=== PATIENT | female | born 1995 | race Caucasian/White ===

== ENCOUNTER 2024-07-30 17:18 | Inpatient (IN) ==
[2024-07-30] MEDS ORDERED: OXYTOCIN 30 UNITS/NSS 30 UNITS/500 ML BAG IV PRN (18:08)
[2024-07-30] MEDS ORDERED: LIDOCAINE 1% LOCAL 20 ML VIAL INFIL PRN (18:08)
[2024-07-30] MEDS ORDERED: CALCIUM CARBONATE 500 MG CHEWABLE TAB PO PRN (18:08)
[2024-07-30] MEDS: NIFEdipine 10 MG CAP PO STA ×2 (18:27→23:50)
[2024-07-30 18:55] LABS: Hemoglobin 12.5 g/dl (12.0-16.0); Mean Corpuscular Hemoglobin 31.3 pg (25.0-34.0); Mean Corpuscular Hgb Conc 34.7 g/dL (32.0-36.0); Mean Corpuscular Volume 90.2 fL (80.0-100.0); Mean Platelet Volume 11.9 fL (9.4-12.4); Platelet Count 169 K/uL (130-400); RDW Coefficient of Variation 14.4 % (11.5-14.5); RDW Standard Deviation 47.6 fL (36.4-46.3); Red Blood Count 3.99 M/uL (4.20-5.40); White Blood Count 16.31 K/ul (4.8-10.8)
[2024-07-30 19:12] LABS: Alanine Aminotransferase 11 U/L (7-52); Albumin Globulin Ratio 1.2 (0.9-2); Albumin Level 3.5 gm/dl (3.4-5.0); Alkaline Phosphatase 121 U/L (34-104); Anion Gap 9 (3-11); Aspartate Aminotransferase 19 U/L (13-39); Bilirubin,Total 0.3 mg/dl (0.2-1.0); Blood Urea Nitrogen 6 mg/dl (6-23); Calcium 9.1 mg/dl (8.6-10.3); Carbon Dioxide 23 mmol/L (21-32); Chloride 106 mmol/L (98-107); Creatinine Clr Calc Pharmacy 140.1 ml/min; Est GFR (African American) > 150.0 ml/min; Est GFR (Non-African American) 132.6 ml/min; Globulin 2.9 gm/dl (2.5-4.0); Glucose 85 mg/dl (70-99(Fasting)); Potassium 3.8 mmol/L (3.5-5.1); Sodium 138 mmol/L (136-145); Total Protein 6.4 gm/dl (6.0-8.3)
[2024-07-30 19:16] LABS: Amphetamines+Metham, Urine Neg (Neg); Barbiturates, Urine Neg (Neg); Benzodiazepine, Urine Neg (Neg); Cocaine, Urine Neg (Neg); Fentanyl, Urine Neg (Neg); MDMA (Ecstacy), Urine Neg (Neg); Marijuana, Urine Neg (Neg); Methadone, Urine Neg (Neg); Opiate, Urine Neg (Neg); Phencyclidine, Urine Neg (Neg)
[2024-07-30 19:24] LABS: Creatinine Urine Random 78.1 mg/dl; Protein Creatinine Ratio Urine 0.5 (0-0.2); Total Protein Urine Random 41.1 mg/dl (0-11.9)
[2024-07-30] MEDS: LACTATED RINGER'S 1,000 ML IV PRN (19:46)
[2024-07-30] MEDS: MAGNESIUM SULFATE / WTR 40 GM/1,000 ML BAG IV SCH (19:49)
[2024-07-30] MEDS: OXYTOCIN 30 UNITS/NSS 30 UNITS/500 ML BAG IV PRN (19:49)
[2024-07-30] MEDS: MAG SULFATE 4GM BOLUS FROM BAG IV ONE (19:50)
--- NOTE | 2024-07-30 20:51 | History & Physical Report ---
Date of Service July 30, 2024 Assessment & Plan (1) Pre-eclampsia added to pre-existing hypertension: Plan: BP responded well to one dose of Nifedipine Pre-eclampsia labs are normal except urine P/C ratio which is elevated to 0.5 will start MgSO4 drip cervical balloon placed and will start pitocin IOL epidural when requested anticipate vaginal delivery. Admission and Anticipated Discharge Date Admission Date: July 30, 2024 History of Present Illness Primary Care Provider: NO PCP Patient is a 29 yo female EDC 08/11/24 who presents at 38 2/7 weels after her regular OB visit for further evaluation of elevated BP. Her BP has been elevated on several occasions during her routine OB visits. her BP was 148/86. she has no pre-eclampsia symptoms currently. Of note, she had elevated BP's after the of her son 8 years ago but did not need anti-hypertensive meds. It is uncertain whether she could be considered to have chronic hypertension vs gestational hypertension. On presentation in L&D, BP is markedly elevated at 170/110 and remained in this range over several BP's- she received 20mg Nifedipine and was admitted for pre-eclampsia with severe features. GBS-negative. complicated by Suboxone therapy. Allergies Allergy/AdvReac Type Severity Reaction Status Date / Time No Known Allergies Allergy Unverified 07/30/24 13:15 Home Medications Medication Instructions Recorded Confirmed Type Multivit/Min/Iron/Fol Ac/Pren 1 tab PO DAILY #0 tabs 10/16/16 07/30/24 History ( Vitamin) buprenorphine 8 mg-naloxone 2 mg 1 film buccal DAILY 02/24/24 07/30/24 History sublingual film (Suboxone) aspirin 81 mg tablet,delayed 81 mg PO DAILY 06/18/24 07/30/24 History release (Adult Low Dose Aspirin) ferrous sulfate 325 mg (65 mg 325 mg PO DAILY 07/30/24 07/30/24 History iron) tablet Patient History Medical History Varicella vaccination Hypertension affecting in third trimester Gestational hypertension w/o significant proteinuria in 3rd trimester Surgical History S/P tonsillectomy Family History (Updated 07/30/24 @ 19:27 by Chloe Birmingham RN) Father Hypertension Stroke Denies family history of Ovarian cancer Breast cancer Colorectal cancer Social History Smoking Status: Former smoker Age Quit Using Tobacco: 21; Do You Dip or Chew Tobacco: No; Hx Alcohol Use: No Hx Substance Use: No Preferred Language: Lebanese Pharmacy Coordinator Required: No Beliefs That Will Affect Care: None marital status: Single marital status details: Adam Mishra (36) [phone] Current Living Situation: Family and Significant Other Current Living Situation Comment: FOB and son, 1 dog current occupational status: employed current occupation: [employer] Feels Safe at Home: Yes Safety Concerns: Feels Safe At This Time Assistive Devices: None Review of Systems All systems reviewed & are unremarkable except as noted in HPI & below Physical Exam Constitutional: WD/WN, vitals as above Neurologic: patellar DTR's 2+ bilat, sensation intact (brisk ) Psychiatric: A+Ox3, euthymic affect Genitourinary: OB Exam Abdomen: + vertex, + estimated weight (7-8 pounds) and + irregular contractions Manual OB Exam: + cervical dilation (1-2 cm), + cervical effacement 50% and + station -2 (posterior) OB Exam Monitor Tracing: + external FHT monitor used, + external uterine monitor used, + category I and + normal FHT variability Results & Data Vital Signs (Past 12 Hours) Vital Signs Temp Pulse Resp BP 07/30/24 20:33 71 07/30/24 20:33 114/69 07/30/24 20:19 83 07/30/24 20:19 129/89 07/30/24 20:03 91 H 07/30/24 20:03 138/93 07/30/24 19:50 87 07/30/24 19:50 159/93 H 07/30/24 19:33 82 07/30/24 19:33 148/87 H 07/30/24 19:10 98.8 F 18 07/30/24 19:04 87 07/30/24 19:04 154/97 H 07/30/24 18:40 76 07/30/24 18:40 197/111 H 07/30/24 18:39 98.8 F 19 07/30/24 18:03 67 177/105 H 07/30/24 17:53 66 171/113 H 07/30/24 17:48 67 178/112 H 07/30/24 17:44 71 170/105 H Code Status & VTE Plan VTE Prophylaxis Plan VTE Prophylaxis will be ordered: No Coding Level of Care Code 52689 INT INP/OBS CARE MIN Diagnoses Pre-eclampsia added to pre-existing hypertension O11.9 CPT Codes Misx Procedure Codes - 28443 Placement of cervical dilator: 56138 Placement of cervical dilator ([id number])
[2024-07-31] MEDS ORDERED: SODIUM CHLORIDE 0.9% PF INJ 10 ML VIAL EPI PRN (01:39)
[2024-07-31] MEDS ORDERED: NALOXONE HCL 0.4 MG/1 ML VIAL/CARP IV PRN (01:39)
[2024-07-31] MEDS ORDERED: diphenhydrAMINE 50 MG/ML VIAL IV PRN (01:39)
[2024-07-31] MEDS ORDERED: ePHEDrine sulfate 50 MG/ML AMP IV PRN (01:39)
[2024-07-31] MEDS ORDERED: PROMETHAZINE 6.25 MG/50.25 ML BAG IV PRN (01:39)
[2024-07-31] MEDS ORDERED: ROPIVACAINE 0.5% PF 5 MG/ML 20 ML VIAL EPI PRN (01:39)
[2024-07-31] MEDS ORDERED: NALOXONE HCL 1 MG in SODIUM CHLORIDE 0.9% 1,000 ML IV PRN (01:39)
[2024-07-31] MEDS ORDERED: NALBUPHINE HCL INJ 10 MG/ML AMP IV PRN (01:39)
[2024-07-31] MEDS ORDERED: fentaNYL citrate PF 100 MCG/2 ML VIAL EPI PRN (01:39)
[2024-07-31] MEDS ORDERED: LIDOCAINE 2% MPF LOCAL 5 ML VIAL EPI PRN (01:39)
[2024-07-31] MEDS: BUPIVACAINE 0.25% PF 30 ML VIAL ONE ×2 (01:57→10:52)
[2024-07-31] MEDS: SODIUM CHLORIDE 0.9% PF INJ 10 ML VIAL ONE ×2 (01:57→10:52)
[2024-07-31] MEDS: LIDOCAINE 2%/EPINEPHRINE 1:200,000 20 ML PF ONE ×2 (01:57→10:52)
[2024-07-31] MEDS: fentANYL 2 MCG/ML BUPIVacaine 0.125%-NSS 100ML BAG ONE ×2 (01:58→14:30)
[2024-07-31] MEDS: LIDOCAINE 2%/EPINEPHRINE 1:200,000 20 ML PF EPI STA (02:14)
[2024-07-31] MEDS: BUPIVACAINE 0.25% PF 30 ML VIAL EPI STA (02:14)
[2024-07-31] MEDS: ePHEDrine sulfate 50 MG/ML AMP ONE ×2 (02:14→10:58)
[2024-07-31] MEDS: SODIUM CHLORIDE 0.9% PF INJ 10 ML VIAL EPI STA (02:14)
[2024-07-31] MEDS: fentaNYL citrate PF 100 MCG/2 ML VIAL EPI STA (02:14)
[2024-07-31] MEDS: fentaNYL citrate PF 100 MCG/2 ML VIAL ONE ×2 (02:14→19:31)
[2024-07-31] MEDS ORDERED: NURSING L&D Epidural Breakthrough Pain Update ONE (07:08)
[2024-07-31] MEDS: fentANYL 2 MCG/ML BUPIVacaine 0.125%-NSS 100ML BAG EPI PRN ×2 (08:01→19:35)
[2024-07-31] MEDS: NIFEdipine 10 MG CAP PO STA (08:25)
--- NOTE | 2024-07-31 08:39 | Labor Progress Brief Note ---
Date of Service July 31, 2024 Subjective pt feeling pain with ctx. anesthesia coming up to see her. Assessment & Plan (1) Pre-eclampsia added to pre-existing hypertension: (2) Encounter for induction of labor: Plan will see how iupc can help titrate her pitocin. fhts categ 1. bps noted. Admission and Anticipated Discharge Date Admission Date: July 30, 2024 Physical Exam Constitutional: WD/WN, vitals as above Genitourinary: Manual OB Exam: + cervical dilation (3-4cm), + cervical effacement (50-75%, thicker ant) and + station -2 OB Exam Monitor Tracing: + external FHT monitor used, + external uterine monitor used, + intra-uterine pressure catheter used (IUPC placed, pit at 24, so far first mvu 45. ), + category I and + normal FHT variability Results & Data Vital Signs (Past 12 Hours) Vital Signs Temp Pulse Resp BP Pulse Ox 07/31/24 08:32 90 100 07/31/24 08:27 80 100 07/31/24 08:22 80 99 07/31/24 08:19 83 150/95 H 07/31/24 08:17 80 98 07/31/24 08:12 95 H 99 07/31/24 08:07 87 100 07/31/24 08:04 86 151/100 H 07/31/24 08:02 88 99 07/31/24 08:00 16 07/31/24 08:00 16 07/31/24 07:57 85 99 07/31/24 07:52 89 99 07/31/24 07:50 89 166/97 H 07/31/24 07:47 86 99 07/31/24 07:42 87 99 07/31/24 07:37 84 99 07/31/24 07:33 83 146/95 H 07/31/24 07:32 88 99 07/31/24 07:30 16 07/31/24 07:30 16 07/31/24 07:27 85 99 07/31/24 07:22 88 100 07/31/24 07:18 89 163/99 H 07/31/24 07:17 91 H 99 07/31/24 07:12 89 100 07/31/24 07:07 89 100 07/31/24 07:05 98.6 F 16 07/31/24 07:05 16 09/27/24 07:03 88 144/90 H 07/31/24 07:02 91 H 100 07/31/24 06:57 87 100 07/31/24 06:52 84 100 07/31/24 06:48 90 138/86 07/31/24 06:47 89 100 07/31/24 06:42 91 H 99 07/31/24 06:37 81 98 07/31/24 06:33 81 133/74 07/31/24 06:32 92 H 98 07/31/24 06:27 81 97 07/31/24 06:22 80 98 07/31/24 06:19 86 138/75 07/31/24 06:18 86 137/71 07/31/24 06:17 79 98 07/31/24 06:12 77 98 07/31/24 06:07 81 99 07/31/24 06:04 79 146/79 H 07/31/24 06:02 80 99 07/31/24 06:00 16 07/31/24 05:57 82 100 07/31/24 05:52 82 99 07/31/24 05:48 78 137/75 07/31/24 05:47 77 99 07/31/24 05:42 88 99 07/31/24 05:37 78 98 07/31/24 05:33 77 133/72 07/31/24 05:32 78 98 07/31/24 05:27 78 98 07/31/24 05:22 79 99 07/31/24 05:18 78 122/64 07/31/24 05:17 82 99 07/31/24 05:12 82 99 07/31/24 05:07 80 100 07/31/24 05:04 86 161/90 H 07/31/24 05:02 88 100 07/31/24 05:00 16 07/31/24 05:00 16 07/31/24 05:00 98.4 F 16 07/31/24 04:57 79 100 07/31/24 04:52 80 100 07/31/24 04:48 80 151/90 H 07/31/24 04:47 78 100 07/31/24 04:42 90 100 07/31/24 04:37 80 99 07/31/24 04:33 75 147/84 H 07/31/24 04:32 77 100 07/31/24 04:27 78 100 07/31/24 04:22 74 100 07/31/24 04:18 71 119/68 07/31/24 04:17 70 100 07/31/24 04:12 82 99 07/31/24 04:07 80 99 07/31/24 04:05 16 07/31/24 04:03 72 131/81 07/31/24 04:02 71 99 07/31/24 04:00 18 07/31/24 04:00 18 07/31/24 03:57 83 100 07/31/24 03:52 77 98 07/31/24 03:48 67 120/70 07/31/24 03:47 65 98 07/31/24 03:42 69 99 07/31/24 03:37 66 98 07/31/24 03:34 65 117/66 07/31/24 03:32 68 98 07/31/24 03:27 68 98 07/31/24 03:22 66 97 07/31/24 03:19 69 133/79 07/31/24 03:17 67 97 07/31/24 03:12 71 97 07/31/24 03:07 77 98 07/31/24 03:04 75 114/66 07/31/24 03:02 72 98 07/31/24 03:00 16 07/31/24 03:00 97.7 F 16 07/31/24 02:57 78 99 07/31/24 02:52 81 99 07/31/24 02:50 73 121/74 07/31/24 02:47 75 97 07/31/24 02:42 72 97 07/31/24 02:37 74 98 07/31/24 02:34 85 117/71 07/31/24 02:32 82 98 07/31/24 02:30 18 07/31/24 02:30 98.6 F 18 07/31/24 02:27 79 98 07/31/24 02:22 84 99 07/31/24 02:17 94 H 100 07/31/24 02:16 86 127/72 07/31/24 02:15 18 07/31/24 02:15 18 07/31/24 02:13 82 136/79 07/31/24 02:12 79 99 07/31/24 02:10 18 07/31/24 02:10 18 07/31/24 02:07 80 98 07/31/24 02:05 83 18 126/92 07/31/24 02:03 79 105/60 07/31/24 02:02 99 07/31/24 02:02 84 07/31/24 02:02 103/58 L 07/31/24 02:02 84 109/61 07/31/24 02:01 93 H 137/81 07/31/24 02:00 18 07/31/24 02:00 18 07/31/24 02:00 18 07/31/24 01:59 88 129/76 07/31/24 01:58 88 07/31/24 01:58 125/73 07/31/24 01:58 85 139/80 07/31/24 01:57 84 99 07/31/24 01:52 107 H 99 07/31/24 01:48 109 H 194/109 H 07/31/24 01:33 74 165/92 H 07/31/24 01:20 74 150/84 H 07/31/24 01:04 78 169/104 H 07/31/24 01:00 18 07/31/24 01:00 18 07/31/24 01:00 18 07/31/24 00:48 78 152/95 H 07/31/24 00:35 75 156/94 H 07/31/24 00:18 72 138/84 07/31/24 00:04 66 157/88 H 07/31/24 00:00 18 07/31/24 00:00 18 07/31/24 00:00 18 07/30/24 23:50 74 07/30/24 23:50 158/99 H 07/30/24 23:34 79 07/30/24 23:34 174/108 H 07/30/24 23:18 79 07/30/24 23:18 165/99 H 07/30/24 23:04 81 07/30/24 23:04 173/108 H 07/30/24 23:00 18 07/30/24 23:00 18 07/30/24 23:00 98.6 F 18 07/30/24 22:49 71 07/30/24 22:49 145/92 H 07/30/24 22:34 78 07/30/24 22:34 132/92 07/30/24 22:30 18 07/30/24 22:30 18 07/30/24 22:19 72 07/30/24 22:19 150/91 H 07/30/24 22:03 77 07/30/24 22:03 142/88 H 07/30/24 22:00 18 07/30/24 22:00 18 07/30/24 22:00 18 07/30/24 21:49 18 07/30/24 21:49 18 07/30/24 21:48 75 07/30/24 21:48 141/86 H 07/30/24 21:35 68 07/30/24 21:35 133/84 07/30/24 21:34 18 07/30/24 21:34 18 07/30/24 21:19 18 07/30/24 21:19 18 07/30/24 21:19 72 07/30/24 21:19 140/87 07/30/24 21:04 18 07/30/24 21:04 18 07/30/24 21:03 71 07/30/24 21:03 141/88 H 07/30/24 20:49 69 07/30/24 20:49 136/84 Coding Level of Care Code None Diagnoses Pre-eclampsia added to pre-existing hypertension O11.9 Encounter for induction of labor Z34.90
[2024-07-31] MEDS: BUPIVACAINE 0.25% PF 30 ML VIAL EPI PRN (08:40)
--- NOTE | 2024-07-31 08:50 | Anesthesia Procedure Note ---
Date of Service July 31, 2024 Anesthesia Epidural Re-Dose Vital Signs Temp Pulse Resp BP Pulse Ox 37.0 C 85 16 152/93 H 99 07/31/24 07:05 07/31/24 08:42 07/31/24 08:00 07/31/24 08:40 07/31/24 08:42 Notes Pain Intensity: 6 Dilatation (cm): 4.0 Effacement (%): 60 Called by nursing to evaluate epidural as the patient is having increased pain. The epidural was re-dosed with the following medications (all medications via epidural route) after negative aspiration of the epidural catheter for CSF/HEME. 0.2 Ropivacaine ml via epidural After Epidural Re-Dose Mental Status: alert / awake / arousable and participated in evaluation Pain: improving with treatment Airway Patency, RR, SpO2: stable & adequate BP & HR: stable & adequate Additional Notes: Seen patient for increased pain. Patient reports epidural was working well prior but now has increased pain with contractions. On test with ice, patient had L2 level on right and T12 level on left. Redosed patient with 8 cc of 0.25% bupi and 100 mcg fentanyl. Pain improved significantly. HDS.
[2024-07-31] MEDS: BUPRENORPHINE HCL SL SCH (09:00)
[2024-07-31] MEDS: NALOXONE HCL SL SCH (09:00)
--- NOTE | 2024-07-31 10:55 | Anesthesia Procedure Note ---
Date of Service July 31, 2024 Anesthesia Post Epidural Note Vital Signs Vital Signs: Temp Pulse Resp BP Pulse Ox 36.7 C 99 H 18 113/64 98 07/31/24 09:00 07/31/24 10:52 07/31/24 10:30 07/31/24 10:52 07/31/24 10:52 Pain Intensity Abdomen: Pain Intensity: 7 Notes Mental Status: alert / awake / arousable Patient Amnestic to Procedure: No Nausea / Vomiting: adequately controlled Pain: see Notes below Airway Patency, RR, SpO2: stable & adequate BP & HR: stable & adequate Hydration State: stable & adequate Neuraxial Anesthesia: see Notes below Anesthetic Complications: no major complications apparent Epidural: Removed without complications and With tip intact Notes: epidural removed due to poor pain control. Tip intact. Will replace epidural
--- NOTE | 2024-07-31 10:56 | Communication Note ---
Date of Service: July 31, 2024 Patient assessed for increased pain 1 hour after redose. patient has bilateral L2 level. Given poor pain control despite adjusting pump settings and bolusing, discussed replacing epidural with patient. Patient agreed and consented to repeat epidural.
[2024-07-31] MEDS ORDERED: Nursing to Pharmacy Communication SCH (11:00)
[2024-07-31] MEDS: ONDANSETRON INJ 2 MG/ML 2 ML VIAL IV PRN (12:43)
--- NOTE | 2024-07-31 16:19 | Anesthesiology Consultation ---
Date of Service July 31, 2024 Assessment & Plan Chart Review Chart Review: Patient NOT seen in Pre Admission Testing and Acceptable Risk for Labor Epidural Consults Requested none ASA ASA2 Proposed Anesthesia Anesthesia Type: Labor Epidural Risk / Benefits Reviewed With: PT / POA / Parent / Guardian, Accepts Plan and Informed Consent Obtained History Height/Weight Height: 5 ft 2 in Weight: 59.24 kg Allergies Allergy/AdvReac Type Severity Reaction Status Date / Time No Known Allergies Allergy Unverified 07/30/24 13:15 Medications Home Medications Medication Instructions Recorded Confirmed Last Taken Multivit/Min/Iron/Fol Ac/Pren 1 tab PO DAILY #0 tabs 10/16/16 07/30/24 07/30/24 08:00 ( Vitamin) buprenorphine 8 mg-naloxone 2 mg 1 film buccal DAILY 02/24/24 07/30/24 07/30/24 sublingual film (Suboxone) 0800 aspirin 81 mg tablet,delayed 81 mg PO DAILY 06/18/24 07/30/24 07/30/24 release (Adult Low Dose Aspirin) 0800 ferrous sulfate 325 mg (65 mg 325 mg PO DAILY 07/30/24 07/30/24 07/30/24 08:00 iron) tablet Active Medications Generic Name Dose Route Start Last Admin Trade Name Freq PRN Reason Stop Dose Admin Bupivacaine HCl 30 ml 07/31/24 01:39 07/31/24 08:40 Bupivacaine 0.25% Pf 30 Ml Vial EPI 08/01/24 01:38 30 ml ONCE PRN Administration Epidural Redose Buprenorphine/Naloxone 1 ea 07/31/24 09:00 07/31/24 09:00 Pt Own Med - Buprenorphine Hcl/Naloxone Hcl 8mg/2mg Film SL 08/30/24 08:59 1 ea DAILY SANDY Administration Lactated Ringer's 1,000 mls @ 125 mls/hr 07/30/24 18:08 07/31/24 10:32 Lr IV 08/01/24 18:07 75 mls/hr .Q8H PRN Infusion L&D Protocol Protocol Oxytocin 30 units in 500 mls @ 19 mls/hr 07/30/24 19:02 07/31/24 16:00 Pitocin 30 Units/Nss IV 08/01/24 19:01 1.14 units/hr .Q24H PRN 19 mls/hr Labor Induction/Augmentation Titration Protocol 1.14 UNITS/HR Magnesium Sulfate 40 gm in 1,000 mls @ 50 mls/hr 07/30/24 19:15 07/31/24 14:30 Magnesium Sulfate / Wtr IV 08/29/24 19:14 50 mls/hr .Q20H SANDY Administration Ondansetron HCl 4 mg 07/31/24 01:39 07/31/24 12:43 Ondansetron Inj 2 Mg/Ml 2 Ml Vial IV 08/01/24 01:38 4 mg Q6H PRN Administration Nausea &/or Vomiting Past Medical History Medical History Varicella vaccination Hypertension affecting in third trimester Gestational hypertension w/o significant proteinuria in 3rd trimester Past Family History Family History Father Hypertension Stroke Denies family history of Ovarian cancer Breast cancer Colorectal cancer Past Surgical History Surgical History S/P tonsillectomy Past Anesthesia History No Hx of Anesthesia Complications and No Family Hx of Anesthesia Complications History of PONV No Hx of PONV and No Hx of Motion Sickness Social History Smoking Status: Former smoker Do You Dip or Chew Tobacco: No Hx Alcohol Use: No Hx Substance Use: No Last Used Substance Other:: Quit in 2012 Review of Systems ROS Unobtainable: All systems reviewed & are unremarkable except as noted in HPI & below Physical Exam Vital Signs Last Vital Signs Temp 36.8 C 07/31/24 15:00 Pulse 97 H 07/31/24 16:17 Resp 16 07/31/24 16:00 BP 117/67 07/31/24 16:17 Pulse Ox 98 07/31/24 16:17 ENMT Mouth: no TMJ abnormality Thyromental Distance: > or= 3.5 Finger Breadths Mallampati Class: II Neck normal visual inspection and trachea midline; neck extension not limited Respiratory normal respiratory effort Auscultation: lungs clear to auscultation bilaterally Cardiovascular Rate/Rhythm: regular rate and regular rhythm Heart Sounds: no murmur Musculoskeletal Spine: normal cervical ROM Extremities: full ROM of extremities Neurologic moves all extremities Psychiatric Orientation: alert and oriented x 3 Testing Laboratory Results 07/30/24 18:27 07/30/24 18:27
--- NOTE | 2024-07-31 20:37 | Delivery Summary ---
Vaginal Delivery Summary Date of Service July 31, 2024 Vaginal Delivery Summary Spontaneous vaginal delivery the patient was induced by the previous physician Dr. Bynum the night before for preeclampsia with severe features Pitocin was used and patient's membranes were ruptured prior to my arrival in the morning she continue Pitocin and made slow progress albeit when she had 6 cm she started to progress quickly at this stage she eventually reached fully dilated pushed over several contractions delivering a baby in occiput anterior position live vigorous female QBL 154 mL. Should be noted when baby's head delivered there was clear fluid no nuchal cord gentle traction on the baby no excessive force live vigorous infant. Placenta was removed with traction IV Pitocin started there was no significant tearing sponge and instrument counts were correct patient will maintain on magnesium and daily's Subutex magnesium will continue for 24 hours [facility] Vaginal Delivery Charge Delivery Type Details:
[2024-07-31 21:07] LABS: Base Excess Cord Arterial Bld -3.1 mEq/L (-9-1.8); Base Excess Cord Venous Blood -1.3 mEq/L (-7.7-1.9); CO2 Cord Arterial Blood 59 mmHg (39.1-73.5); Cord Venous Blood HCO3 25 mmol/L (18.4-26.8); Cord Venous Blood PCO2 46 mmHg (30.4-57.2); Cord Venous Blood PO2 28 mmHg (14.1-43.3); Cord Venous Blood pH 7.34 (7.20-7.44); HCO3 Cord Arterial Blood 25 mmol/L (19.7-28.5); O2 Saturation Cord Venous Bld < 60.0 % (<68); Oxygen Sat Cord Arterial Blood < 60.0 % (<60); PO2 Cord Arterial Blood 20 mmHg (4.1-31.7); pH Cord Arterial Blood 7.24 (7.1-7.38)
[2024-07-31] MEDS: DIPHTHER/TETAN/PERTUS Vaccine (Tdap, Adol/Adult) 0.5mL IM ONE (22:44)
[2024-07-31] MEDS ORDERED: ACETAMINOPHEN 325 MG TAB PO PRN (22:44)
[2024-07-31] MEDS: DOCUSATE SODIUM 100 MG CAP PO SCH (22:44)
[2024-07-31] MEDS ORDERED: OXYTOCIN 30 UNITS/NSS 30 UNITS/500 ML BAG IV PRN (22:44)
[2024-07-31] MEDS ORDERED: bisacodyL 10 MG SUPP PR PRN (22:44)
[2024-07-31] MEDS ORDERED: HYDROCORTISONE ACETATE 25 MG SUPP PR PRN (22:44)
--- NOTE | 2024-08-01 00:43 | Anesthesia Procedure Note ---
Date of Service August 01, 2024 Anesthesia Post Epidural Note Vital Signs Vital Signs: Temp Pulse Resp BP Pulse Ox 36.9 C 86 18 120/72 98 07/31/24 22:30 08/01/24 00:10 07/31/24 23:00 08/01/24 00:10 07/31/24 20:42 Pain Intensity Abdomen: Pain Intensity: 0 Back: Pain Intensity: 4 Notes Mental Status: alert / awake / arousable and participated in evaluation Nausea / Vomiting: adequately controlled Pain: adequately controlled Airway Patency, RR, SpO2: stable & adequate BP & HR: stable & adequate Hydration State: stable & adequate Neuraxial Anesthesia: was administered and sensory block is resolving Anesthetic Complications: no major complications apparent Epidural: Removed without complications and With tip intact
[2024-08-01] MEDS: LACTATED RINGER'S 1,000 ML IV SCH (01:02)
[2024-08-01 05:53] LABS: Hematocrit (blood only) 31.7 % (37.0-47.0); Hemoglobin 10.8 g/dl (12.0-16.0); Mean Corpuscular Hgb Conc 34.1 g/dL (32.0-36.0); Mean Corpuscular Volume 91.1 fL (80.0-100.0); Mean Platelet Volume 11.3 fL (9.4-12.4); Platelet Count 185 K/uL (130-400); RDW Coefficient of Variation 14.6 % (11.5-14.5); RDW Standard Deviation 48.1 fL (36.4-46.3); Red Blood Count 3.48 M/uL (4.20-5.40); White Blood Count 35.09 K/ul (4.8-10.8)
[2024-08-01] MEDS: IBUPROFEN 600 MG TAB PO PRN (06:58)
[2024-08-01] MEDS ORDERED: buprenorphine HCL 8 MG SUBL SL ONE (07:00)
--- NOTE | 2024-08-01 07:27 | Obstetrical Progress Note ---
Date of Service August 01, 2024 Assessment & Plan Admission and Anticipated Discharge Date Admission Date: July 30, 2024 Subjective day #1 the patient is on magnesium her blood pressures are excellent at this stage she feels well and her white count was significantly elevated at however her temperature is in the normal range will await pending preeclampsia labs this morning at approximately 8 PM tonight magnesium will be due to be stopped Results & Data Vital Signs (Past 12 Hours) Vital Signs Temp Pulse Resp BP Pulse Ox 08/01/24 07:19 75 128/80 08/01/24 06:54 85 133/73 08/01/24 06:38 82 130/70 08/01/24 06:23 81 136/83 08/01/24 06:19 18 08/01/24 06:08 86 124/79 08/01/24 05:54 71 119/63 08/01/24 05:38 69 98/56 L 08/01/24 05:14 83 137/71 08/01/24 05:10 86 176/92 H 08/01/24 05:08 86 176/90 H 08/01/24 05:00 98.8 F 18 08/01/24 05:00 18 08/01/24 04:53 75 112/68 08/01/24 04:38 84 136/71 08/01/24 04:23 76 124/74 08/01/24 04:08 83 133/79 08/01/24 04:00 18 08/01/24 03:53 86 128/77 08/01/24 03:38 78 141/72 H 08/01/24 03:24 94 H 167/96 H 08/01/24 03:09 94 H 166/99 H 08/01/24 03:00 18 08/01/24 02:53 90 130/75 08/01/24 02:38 81 117/71 08/01/24 02:23 84 123/75 08/01/24 02:08 81 125/76 08/01/24 02:00 18 08/01/24 01:53 91 H 125/75 08/01/24 01:38 81 125/74 08/01/24 01:23 79 124/74 08/01/24 01:08 86 129/84 08/01/24 01:00 98.4 F 18 08/01/24 01:00 18 08/01/24 00:53 86 128/82 08/01/24 00:10 86 120/72 08/01/24 00:00 18 07/31/24 23:31 96 H 134/81 07/31/24 23:16 102 H 136/69 07/31/24 23:01 104 H 130/85 07/31/24 23:00 18 07/31/24 22:46 107 H 142/82 H 07/31/24 22:31 90 138/79 07/31/24 22:30 98.4 F 18 07/31/24 22:16 106 H 137/79 07/31/24 22:02 114 H 138/79 07/31/24 22:00 98.8 F 18 07/31/24 22:00 18 07/31/24 21:32 110 H 131/80 07/31/24 21:30 98.8 F 18 07/31/24 21:16 114 H 144/81 H 07/31/24 21:15 98.8 F 18 07/31/24 21:01 104 H 139/89 07/31/24 21:00 98.8 F 18 07/31/24 21:00 18 07/31/24 20:46 106 H 144/92 H 07/31/24 20:45 98.8 F 18 07/31/24 20:42 108 H 98 07/31/24 20:37 112 H 98 07/31/24 20:32 115 H 99 07/31/24 20:31 115 H 179/88 H 07/31/24 20:30 98.8 F 18 07/31/24 20:27 118 H 98 07/31/24 20:22 119 H 98 07/31/24 20:21 133 H 93 07/31/24 20:18 112 H 158/91 H 07/31/24 20:17 111 H 100 07/31/24 20:12 102 H 99 07/31/24 20:07 96 H 98 07/31/24 20:02 96 H 129/88 99 07/31/24 20:00 18 07/31/24 19:57 99 H 99 07/31/24 19:52 102 H 98 07/31/24 19:47 102 H 98 07/31/24 19:46 100 H 128/77 09/27/24 19:42 102 H 98 07/31/24 19:37 109 H 98 07/31/24 19:32 105 H 126/74 98 07/31/24 19:27 106 H 98 PG Care Time/CCT Total # of Minutes Spent Total Time Spent with Patient: Total time spent is greater than 50% in coordination of care (as documented) at patient's floor/unit and/or counseling patient: Coding Level of Care Code None
[2024-08-01] MEDS: NALOXONE HCL SL SCH (07:56)
[2024-08-01] MEDS: PRENATAL VITAMIN 1 TAB PO SCH (07:56)
[2024-08-01] MEDS: BUPRENORPHINE HCL SL SCH (07:56)
[2024-08-01 08:36] LABS: Alanine Aminotransferase 8 U/L (7-52); Albumin Globulin Ratio 1.2 (0.9-2); Albumin Level 2.8 gm/dl (3.4-5.0); Alkaline Phosphatase 99 U/L (34-104); Anion Gap 4 (3-11); Aspartate Aminotransferase 17 U/L (13-39); BUN Creatinine Ratio 10.9 (10-20); Bilirubin Direct 0.1 mg/dl (0-0.2); Bilirubin,Total 0.5 mg/dl (0.2-1.0); Blood Urea Nitrogen 5 mg/dl (6-23); Calcium 6.8 mg/dl (8.6-10.3); Carbon Dioxide 25 mmol/L (21-32); Chloride 103 mmol/L (98-107); Creatinine Clr Calc Pharmacy 140.1 ml/min; Est GFR (African American) > 150.0 ml/min; Est GFR (Non-African American) 132.6 ml/min; Globulin 2.3 gm/dl (2.5-4.0); Glucose 89 mg/dl (70-99(Fasting)); Potassium 4.2 mmol/L (3.5-5.1); Sodium 132 mmol/L (136-145); Total Protein 5.1 gm/dl (6.0-8.3)
[2024-08-01] MEDS: MEASLES, MUMPS & RUBELLA VIRUS VACCINE (MMR) 0.5ML VIAL SQ ONE (17:51)
[2024-08-01] MEDS: bisacodyL 5 MG TABEC PO SCH (20:42)
[2024-08-01] MEDS: BENZOCAINE 20% SPRY 85 APPLN/85 GM CAN EXT PRN (20:42)
[2024-08-02] MEDS: miSOPROStoL 200 MCG TAB PO STA (02:04)
[2024-08-02] MEDS: OXYTOCIN 20 UNITS in LACTATED RINGER'S 1,000 ML IV SCH (02:04)
[2024-08-02] MEDS: OXYTOCIN 20 UNITS/1002ML LR IV ONE (02:07)
[2024-08-02] MEDS: NIFEdipine 10 MG CAP PO STA (02:56)
[2024-08-02] MEDS: ACETAMINOPHEN 325 MG TAB PO PRN (04:23)
[2024-08-02 05:10] LABS: Hematocrit (blood only) 32.5 % (37.0-47.0); Hemoglobin 10.9 g/dl (12.0-16.0); Mean Corpuscular Hemoglobin 31.1 pg (25.0-34.0); Mean Corpuscular Hgb Conc 33.5 g/dL (32.0-36.0); Mean Corpuscular Volume 92.9 fL (80.0-100.0); Mean Platelet Volume 11.6 fL (9.4-12.4); Platelet Count 197 K/uL (130-400); RDW Coefficient of Variation 14.7 % (11.5-14.5); RDW Standard Deviation 50.4 fL (36.4-46.3); White Blood Count 26.09 K/ul (4.8-10.8)
[2024-08-02 05:38] LABS: Basophils # (auto) 0.06 K/uL (0.00-0.20); Basophils % (auto) 0.2 %; Eosinophils # (auto) 0.12 K/uL (0.00-0.50); Eosinophils % (auto) 0.5 %; Immature Granulocytes # (auto) 0.28 K/uL (0.01-0.20); Immature Granulocytes % (auto) 1.1 %; Lymphocytes # (auto) 1.76 K/uL (1.20-3.40); Lymphocytes % (auto) 6.7 %; Monocytes # (auto) 1.22 K/uL (0.11-0.59); Monocytes % (auto) 4.7 %; Neutrophils # (auto) 22.65 K/uL (1.40-6.50); Neutrophils % (auto) 86.8 %
[2024-08-02 07:26] LABS: Appearance Urine Clear (Clear); Bacteria Urine Automated None Seen (None Seen); Bilirubin Urine Negative (Negative); Blood Urine 2+ (Negative); Cast Urine Automated 0-2 /lpf (0-2); Color Urine Yellow; Epithelial Cell Urine Auto 0-2 /hpf (0-2); Glucose Urine UA Negative (Negative); Ketones Urine Negative (Negative); Leukocyte Esterase Urine Trace (Negative); Nitrite Urine Negative (Negative); Protein Urine Negative (Negative); RBC Urine Automated >20 /hpf (0-2); Specific Gravity Urine 1.011 (1.000-1.030); Urobilinogen Urine Negative (Negative); WBC Urine Automated 0-5 /hpf (0-5)
[2024-08-02] MEDS: NIFEdipine EXTENDED REL 30 MG TABCR PO STA (09:02)
--- NOTE | 2024-08-02 11:26 | Obstetrical Progress Note ---
Date of Service August 02, 2024 Assessment & Plan (1) care and examination: routine pp care, this is really her first day pp, since yest was on mag. she is , eating, voiding. bleeding overnight was increased, responded to po cytotec. no longer on pit infusion. (2) Pre-eclampsia added to pre-existing hypertension: did need to trt elevated bp overnight with immed release nifedipine, added xl procardia to am meds and will see if bp remains controlled or if need add more dosing. will monitor that. (3) Fever: pretty high temp overnight. cbc with diff reviewed (wbc actually dec from day before) urine cx and blood cx pending. she feels sweaty now, not sure how much those sx have to do with her maintenance subutex but explained to pt that if elevated temp again, will need to trt for febrile morbidity of ? etiology, usually endometritis is dx of exclusion but it is imp to note, absolutely no tenderness on exam, but did have increased bleeding overnight. will monitor temp curve. if temp recurs, likely add iv abx. pt aware. cbc with diff ordered for am. Day #:: 2 Subjective Ambulation: ambulating normally Voiding: no voiding problems Diet Tolerance:: regular diet Lochia:: Small Feeding Type:: breast feeding denies pain issues, no breast pain, no urinary sx. no uterine tenderness. did have some increased bleeding overnight but hgb checked and normal. did have elevated temp overnight and wbc much improved from previous. no return of temp but pt feels sweaty, she is also has recently been given her subutex which was due. going very well. Now s/p magnesium, this is really her first pp day. denies duran or visual change, no ruq pain. eating fine. no chest pain or sob. Constitutional: + as per Subjective / HPI Physical Exam Constitutional WD/WN, vitals as above Respiratory normal respiratory effort, lungs clear to auscultation Cardiovascular Rate/Rhythm: regular rate and regular rhythm Gastrointestinal (Abdomen) Inspection/Auscultation: abdomen normal to inspection Percussion/Palpation: abdomen soft; abdomen nontender Fundus firm 2cm down, completely non tender. Musculoskeletal nt calves no edema Neurologic grossly normal Psychiatric A+Ox3, euthymic affect Results & Data Vital Signs (Past 12 Hours) Vital Signs Temp Pulse Pulse Resp BP BP Pulse Ox 08/02/24 10:06 137/77 08/02/24 08:09 98.1 F 85 16 150/75 H 08/02/24 05:38 101.1 F H 08/02/24 04:02 102.6 F H 124 H 97 08/02/24 03:58 102.9 F H 122 H 20 135/68 97 08/02/24 02:46 180/95 H 08/02/24 02:42 182/104 H 08/02/24 02:41 104 H 180/104 H 08/02/24 02:32 98.4 F 117 H 98 08/02/24 00:41 98.8 F 73 19 144/84 H O2 Del Method 08/02/24 10:06 08/02/24 08:09 Room Air 08/02/24 05:38 08/02/24 04:02 Room Air 08/02/24 03:58 Room Air 08/02/24 02:46 08/02/24 02:42 08/02/24 02:41 08/02/24 02:32 Room Air 08/02/24 00:41
[2024-08-03] MEDS: NIFEdipine 10 MG CAP PO STA ×2 (00:50→11:33)
--- NOTE | 2024-08-03 05:51 | Obstetrical Progress Note ---
Date of Service August 03, 2024 Assessment & Plan (1) Encounter for assessment: Plan: Patient is PPD 3 s/p 07/31 and doing well - Eating well, voiding well, ambulating well - vitals reviewed and within normal limits - pain well controlled with analgesics - OOB, ambulation, diet progression as tolerated - Blood type: A+, GBS neg, rubella immune - After discharge, 6 week follow up with OB Admission and Anticipated Discharge Date Admission Date: July 30, 2024 Supervising Physician Co-Signing Physician Notes Resident Physician Supervision Note: I interviewed and examined the patient. Discussed with Dr. Go and agree with findings and plan as documented in the note. Any exceptions or clarifications are listed here: Patient doing well this am. Pumping and well. So far afeb x 24hrs, last elevated temp 5am 08/02. no cp or sob, no bleeding concerns. eating, voiding. wbc decreased this am. hgb stable. exam cor rrr, lungs ctab, abd soft ff 3 down nt, nt calves. ppd#3 s/p and s/p mag for preeclampsia severe features. requiring overnight bp mgmt and added more procardia and increased am dose to 60mg xl and also with elevated temp, no etiology, did not recur. need to monitor temp curve and plan dc home after 48af, and make sure bps remain well controlled pt agreeable. she did get mmr, breast feeding, rhpos. Documented By: Tracie Carlson MD, FACOG Subjective 29 yo post- day 3 s/p 07/31 complicated by preeclampsia w/ severe features and ongoing suboxone therapy Ambulation: ambulating normally Voiding: no voiding problems Passing Gas:: Yes Diet Tolerance:: regular diet Lochia:: Small Feeding Type:: bottle feeding and breast feeding without issue Current Pain Level: 0/10 Resting comfortably this AM in NAD. Denies OLIVEIRA, CP, SOB, N/V/D, LE pain/swelling. Review of Systems Constitutional: as per Subjective / HPI Physical Exam Physical Exam: General: patient resting comfortably, NAD, non-toxic in appearance, answers questions appropriately. Skin: warm, dry, intact HEENT: NC/AT, anicteric sclera, conjunctiva without injection, moist mucus membranes. Heart: +S1/S2, regular, no m/r/g Lungs: equal air entry bilaterally, no rales/rhonchi/wheezes Abd: +BS, soft, NT/ND, uterine fundus firm at umbilicus Ext: warm, no clubbing/cyanosis or edema, Ra's neg. Neuro: nonfocal, speech intact, no facial droop, moving all extremities. Results & Data Vital Signs (Past 12 Hours) Vital Signs Temp Pulse Resp BP Pulse Ox O2 Del Method 08/03/24 03:48 16 138/82 08/03/24 00:15 36.8 C 86 16 152/92 H 97 Room Air 08/02/24 19:24 36.6 C 82 18 138/80 98 Room Air (1) Encounter for assessment visit type: exam and care immediately after delivery Qualified Code(s): Z39.0 - Encounter for care and examination of mother immediately after delivery
[2024-08-03 06:06] LABS: Basophils # (auto) 0.04 K/uL (0.00-0.20); Basophils % (auto) 0.2 %; Eosinophils # (auto) 0.27 K/uL (0.00-0.50); Eosinophils % (auto) 1.6 %; Hematocrit (blood only) 31.8 % (37.0-47.0); Hemoglobin 10.8 g/dl (12.0-16.0); Immature Granulocytes % (auto) 1.2 %; Lymphocytes # (auto) 2.13 K/uL (1.20-3.40); Lymphocytes % (auto) 12.5 %; Mean Corpuscular Hemoglobin 31.3 pg (25.0-34.0); Mean Corpuscular Volume 92.2 fL (80.0-100.0); Mean Platelet Volume 10.5 fL (9.4-12.4); Monocytes # (auto) 1.06 K/uL (0.11-0.59); Monocytes % (auto) 6.2 %; Neutrophils # (auto) 13.36 K/uL (1.40-6.50); Neutrophils % (auto) 78.3 %; Platelet Count 248 K/uL (130-400); RDW Coefficient of Variation 14.3 % (11.5-14.5); RDW Standard Deviation 48.4 fL (36.4-46.3); Red Blood Count 3.45 M/uL (4.20-5.40); White Blood Count 17.06 K/ul (4.8-10.8)
[2024-08-03] MEDS ORDERED: NIFEdipine EXTENDED REL 30 MG TABCR PO SCH (09:00)
[2024-08-03] MEDS: NIFEdipine EXTENDED REL 30 MG TABCR PO SCH (09:13)
[2024-08-03] MEDS: LABETALOL HCL 200 MG TAB PO SCH (16:43)
[2024-08-03] MEDS ORDERED: Nursing to Pharmacy Communication SCH (16:45)
[2024-08-04 03:03] VITALS: RESP 16; O2SAT 99
[2024-08-04] MEDS: LABETALOL HCL 200 MG TAB PO SCH (04:20)
--- NOTE | 2024-08-04 06:24 | Obstetrical Progress Note ---
Date of Service August 04, 2024 Assessment & Plan (1) Encounter for assessment: Plan: Patient is PPD 4 s/p 07/31 and doing well - Eating well, voiding well, ambulating well - vitals reviewed and within normal limits - pain well controlled with analgesics - OOB, ambulation, diet progression as tolerated - Blood type: A+, GBS neg, rubella immune - Plan to discharge today - After discharge, 6 week follow up with OB Admission and Anticipated Discharge Date Admission Date: July 30, 2024 Supervising Physician Co-Signing Physician Notes Resident Physician Supervision Note: I interviewed and examined the patient. Discussed with Dr. Go and agree with findings and plan as documented in the note. Any exceptions or clarifications are listed here: PP4 s/p c/b pre-eclampsia w/ SF s/p mag and currently on nifed 60xl daily, labetalol 200q12. Had elevated temp 08/02 w/o focal findings of infection and has not recurred - now afebrile x 48 hrs. Denies s/s PET. VSS, exam benign and wnl. Ok for dc home, will plan for bp check later this week. PET and hypotension precautions reviewed. DC to nesting today Documented By: Michela Serrato MD Subjective 29 yo post- day 4 s/p 07/31 complicated by preeclampsia w/ severe features and ongoing suboxone therapy Ambulation: ambulating normally Voiding: no voiding problems Passing Gas:: Yes Diet Tolerance:: regular diet Lochia:: Small Feeding Type:: bottle feeding and breast feeding without issue Current Pain Level: 0/10 Resting comfortably this AM in NAD. Denies OLIVEIRA, CP, SOB, N/V/D, LE pain/swelling. Physical Exam Physical Exam: General: patient resting comfortably, NAD, non-toxic in appearance, answers questions appropriately. Skin: warm, dry, intact HEENT: NC/AT, anicteric sclera, conjunctiva without injection, moist mucus membranes. Heart: +S1/S2, regular, no m/r/g Lungs: equal air entry bilaterally, no rales/rhonchi/wheezes Abd: +BS, soft, NT/ND, uterine fundus firm at umbilicus Ext: warm, no clubbing/cyanosis or edema, Ra's neg. Neuro: nonfocal, speech intact, no facial droop, moving all extremities. Results & Data Vital Signs (Past 12 Hours) Vital Signs Temp Pulse Resp BP BP Pulse Ox O2 Del Method 08/04/24 04:00 138/82 08/03/24 23:30 36.6 C 70 16 134/81 99 Room Air 08/03/24 21:00 36.7 C 78 18 142/85 H 98 Room Air (1) Encounter for assessment visit type: exam and care immediately after delivery Qualified Code(s): Z39.0 - Encounter for care and examination of mother immediately after delivery
[2024-08-04 20:50] VITALS: BP 138/87; PULSE 86; TEMP 98.2
== END 2024-08-04 20:50 | disposition home or self-care (01) | DRG 806 ==
LOC: OPB 17:18 → 4S1 17:19 → 4E2 08-01 21:17